=== PATIENT | male | born 1985 | race Caucasian/White ===

== ENCOUNTER 2023-03-09 18:54 | Emergency (ER) | payer OTHER, SELFPAY ==
[2023-03-09 19:04] VITALS: BP 148/90; PULSE 83; RESP 18; O2SAT 100; BMI 23.0
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
[2023-03-09] MEDS: bacitracin ointment Pkt 1 EACH TOPICAL (20:15)
== END 2023-03-09 21:03 | disposition home or self-care (01) ==
PROVIDERS: Emergency Provider Nurse Practitioner Family
DX: T23.252A Burn of second degree of left palm, initial encounter (principal); X17.XXXA Contact with hot engines, machinery and tools, initial encounter
CPT/HCPCS: 99283